=== PATIENT | male | born 1945 | race Caucasian/White ===

== ENCOUNTER 2023-12-28 23:18 | Emergency (ER) | payer MEDICARE, SELFPAY ==
[2023-12-28 23:43] VITALS: BP 125/72
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
[2023-12-29 02:11] VITALS: BP 150/57
[2023-12-29 03:00] VITALS: BP 137/60
[2023-12-29 04:00] VITALS: BP 143/60
== END 2023-12-29 04:54 ==
LOC: EMR 23:18
PROVIDERS: EMERGENCY PHYSICIAN Student in an Organized Health Care Education/Training Program; FAMILY PHYSICIAN Internal Medicine
DX: M79.604 Pain in right leg (principal); W06.XXXA Fall from bed, initial encounter; J45.909 Unspecified asthma, uncomplicated; Z87.891 Personal history of nicotine dependence; Z93.0 Tracheostomy status
CPT/HCPCS: 99284; 70450; 73590; 73700

== ENCOUNTER 2024-01-02 20:48 | Emergency (ER) | payer MEDICARE, OTHER, SELFPAY ==
[2024-01-02 20:49] VITALS: BP 137/71
[2024-01-02 21:00] VITALS: BP 155/69
--- NOTE | 2024-01-02 21:44 | ED.GENMED ---
History of Present Illness
General
Chief Complaint: Catheter/Tube Problem
Time Seen by Provider: 01/02/24 21:19
History of Present Illness
History of Present Illness:
78-year-old male presents to the emergency department from [facility] after an accidental removal of his feeding tube. Apparently the patient is not using the feeding tube, according to his daughter he has been eating all of his
meals orally for the past 4 days. They requested that the feeding to be removed at the facility but this request was denied. The primary reason for his ED evaluation today is for evaluation of bleeding given that he is on heparin. On arrival
there is no bleeding noted
Past History
Past History
ED Past Medical History: Asthma; Negative HTN, Hypercholesterolemia or NIDDM
ED Past Surgical History: Other (Hernia X 2, Multiple surgery for fractures)
Social History
Tobacco: Former smoker
Alcohol: Occasional
Personal:
Living: shelter ([facility])
Review of Systems
Review of Systems
Allergies reviewed?: Yes
All Other Systems: ROS reviewed and negative except as documented in HPI and ROS
Phy Exam
Physical Exam
Physical Exam:
GEN: Well appearing, NAD, WDWN
HEENT: Oral mucosa moist, no scleral icterus
Cardiac: Regular rate
Lung: No respiratory distress, no tachypnea
Abdomen: Left upper quadrant PEG tube site clean and dry with no active bleeding
MSK: No gross deformity or injuries
Skin: Good color, no pallor or jaundice, no rashes
Neuro: AO x3
Psych: Calm, cooperative
Course
Vital Signs
Initial and Last Documented VS:
Initial Vital Signs
Temp Pulse Resp BP Pulse Ox
98.0 F 86 20 137/71 98
01/02/24 20:49 01/02/24 20:49 01/02/24 20:49 01/02/24 20:49 01/02/24 20:49
Last Documented Vital Signs
Temp Pulse Resp BP Pulse Ox
98.0 F 86 20 139/61 95
01/02/24 20:49 01/02/24 20:49 01/02/24 20:49 01/02/24 22:00 01/02/24 22:45
MDM/Problems Addressed
MDM/Problems Addressed:
I discussed the case with both the patient's daughter as well as the nursing facility, at this time the patient and his daughter are declining to have the PEG tube replaced thus the patient will be discharged back to his facility
*Critical Care Note
Total Time (30-74mins, 75-104mins- exclusive of procedures): Not Applicable
ED Attending Note
-
Portions of this chart may have been created with voice recognition software.� Occasional wrong word or��sound alike� substitutions may have occurred due to the inherent limitations of voice recognition software.
Discharge Plan
Departure
Patient Disposition: Home (Routine Discharge)
Date of Disposition: 01/02/24
Time of Disposition: 22:05
Patient with high blood pressure during this ER visit?: No
Discharge Problem:
Complication of feeding tube
Referrals:
Patricio Arcos MD [Family Provider] -
Activity Restrictions/Additional Instructions:
Feeding tube was refused by the patient
No concerns for bleeding
Interventions
Interventions:
*Risk Screen - Suicide Last Done: 01/02/24 20:52
*General Assessment Last Done: 01/02/24 20:52
*Neglect/Abuse Screening Last Done: 01/02/24 20:52
*ED COVID-19 Vaccine History Last Done: 01/02/24 20:52
VN-Vtaiiq-Nhkqdkyxqx Assessment Last Done: 01/02/24 20:53
ED-Male Genitourinary Assessment Last Done: 01/02/24 20:53
Discharge Date and Time
Print Language: [place]
[2024-01-02 22:00] VITALS: BP 139/61
[2024-01-02 23:00] VITALS: BP 142/74
[2024-01-03] VITALS: BP 154/67
[2024-01-03 01:00] VITALS: BP 102/80
[2024-01-03 03:57] VITALS: BP 150/63
[2024-01-03 04:15] VITALS: BP 150/63
== END 2024-01-03 05:45 | disposition home or self-care (01) ==
LOC: EMR 20:48
PROVIDERS: EMERGENCY PHYSICIAN Emergency Medicine; FAMILY PHYSICIAN Internal Medicine
DX: T85.848A Pain due to other internal prosthetic devices, implants and grafts, initial encounter (principal); Y92.9 Unspecified place or not applicable; J45.909 Unspecified asthma, uncomplicated; Z46.59 Encounter for fitting and adjustment of other gastrointestinal appliance and device; Z87.891 Personal history of nicotine dependence; Z93.1 Gastrostomy status
CPT/HCPCS: 99282

== ENCOUNTER 2024-01-10 16:20 | Observation (INO) | payer MEDICARE, OTHER, SELFPAY ==
[2024-01-10] VITALS (9 sets, daily range): BP systolic 107–156; BP diastolic 51–68; BMI 31.2; BMI 30.8
[2024-01-10 12:29] LABS: Venous Blood Gas B.E. 0.5 mmol/L (-4 to +4); Venous Blood Gas HCO3 28.7 mmol/L (22-27); Venous Blood Gas O2 Sat % 66.7 %; Venous Blood Gas pCO2 61 mmHg (35-48); Venous Blood Gas pH 7.28 (7.32-7.43); Venous Blood Gas pO2 39 mmHg (30-50)
[2024-01-10 12:31] LABS: Venous Blood Gas O2 Therapy room air
[2024-01-10 12:33] LABS: % Basophils 0.7 % (0-2); % Eosinophils 1.8 % (0-6); % Immature Granulocytes 0.4 % (0-0.5); % Lymphocytes 19.5 % (20.5-51.1); % Monocytes 7.3 % (1.7-9.3); % Neutrophils 70.3 % (42.2-75.2); Absolute Eosinophils 0.1 10^3/uL (0-0.7); Absolute Lymphocytes 1.1 10^3/uL (1.2-3.4); Absolute Monocytes 0.4 10^3/uL (0.1-0.6); Hematocrit 37.4 % (39.0-52.0); Mean Corp Hgb Conc. 34.8 g/dL (33.0-37.0); Mean Corpuscular Hgb 32.7 pg (27.0-31.0); Mean Platelet Volume 8.8 fL (7.4-10.4); Nucleated Red Blood Cells % 0 % (-); Platelet Count 193 10^3/uL (130-400); Red Blood Cell Count 3.98 10^6/uL (4.70-6.10); Red Cell Dist. Width 13.8 % (11.5-14.5); White Blood Cell Count 5.6 10^3/uL (4.8-10.8)
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
[2024-01-10 12:52] LABS: COVID-19 Antigen Negative (Negative)
[2024-01-10 12:55] LABS: Blood Urea Nitrogen 23 mg/dl (9-20); Calcium 9.2 mg/dl (8.4-10.2); Carbon Dioxide 27 mmol/L (22-30); Chloride 101 mmol/L (98-107); Estimated Creatinine Clearance 64 ml/min; Glucose 117 mg/dl (70-99); Potassium 4.3 mmol/L (3.5-5.1); Sodium 140 mmol/L (135-145); eGFR > 60.00
[2024-01-10 13:00] LABS: Troponin I < 0.012 ng/ml
[2024-01-10 13:17] LABS: TSH Reflex To Free T4 4.63 uIU/ml (0.47-4.68)
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
[2024-01-10 15:04] LABS: Urine Albumin Trace (Neg - Trace); Urine Bilirubin Negative (Negative); Urine Character Clear (Clear); Urine Color Yellow; Urine Glucose Negative (Negative); Urine Ketone Negative (Negative); Urine Leukocyte Trace (Negative); Urine Nitrite Negative (Negative); Urine Occult Blood Negative (Negative); Urine Urobilinogen Negative (Neg - 1+)
[2024-01-10 15:15] LABS: Urine Squamous Cell 0-2 /LPF (Few)
[2024-01-10 15:16] LABS: Urine Bacteria Few (Negative); Urine Red Blood Cell 0-2 /HPF (0-2); Urine White Cell 0-2 /HPF (0-5)
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
[2024-01-10] MEDS: NSS 1000 IV (17:43)
--- NOTE | 2024-01-10 18:45 | PTCARENOTE ---
Received pt from ER. Pt drowsy but arousable to verbal stimuli. Oriented to x1-2,able to follow commands, Pt c/o some pain in head and right shoulder, tolerable at this time. Pt NSR on tele, VSS 98% on RA. Pt oriented to room, call varela within
reach, plan of care continues.
--- NOTE | 2024-01-10 20:13 | PTCARENOTE ---
spoke with Julio from [facility]. Pt is usually on dysphaia advanced with nectar thick liquids, placed on regular diet here. Speech consult placed to eval swallowing function, will hold off on feeding until speech eval.
[2024-01-10] MEDS: SEROQUEL 50 MG PO (21:40)
[2024-01-10] MEDS: MELATONIN 3 MG PO (21:40)
[2024-01-10] MEDS: SINGULAIR 10 MG PO (21:40)
[2024-01-10] MEDS: HEPARIN 5000 UNITS SC (21:42)
[2024-01-10] MEDS: HYTRIN 5 MG PO (21:42)
[2024-01-11] MEDS: NSS 1000 IV (03:18)
[2024-01-11 03:29] VITALS: BP 152/65
[2024-01-11 07:35] VITALS: BP 129/72
[2024-01-11 07:41] LABS: % Basophils 0.7 % (0-2); % Immature Granulocytes 0.5 % (0-0.5); % Lymphocytes 35.7 % (20.5-51.1); % Neutrophils 50.1 % (42.2-75.2); Absolute Eosinophils 0.2 10^3/uL (0-0.7); Absolute Lymphocytes 1.5 10^3/uL (1.2-3.4); Absolute Monocytes 0.4 10^3/uL (0.1-0.6); Absolute Neutrophils 2.1 10^3/uL (1.4-6.5); Mean Corp Hgb Conc. 34.4 g/dL (33.0-37.0); Mean Platelet Volume 8.6 fL (7.4-10.4); Nucleated Red Blood Cells % 0 % (-); Platelet Count 149 10^3/uL (130-400); Red Blood Cell Count 3.44 10^6/uL (4.70-6.10); Red Cell Dist. Width 13.8 % (11.5-14.5); White Blood Cell Count 4.2 10^3/uL (4.8-10.8)
[2024-01-11 08:05] LABS: Blood Urea Nitrogen 21 mg/dl (9-20); Calcium 8.6 mg/dl (8.4-10.2); Carbon Dioxide 26 mmol/L (22-30); Chloride 105 mmol/L (98-107); Estimated Creatinine Clearance 91 ml/min; Glucose 102 mg/dl (70-99); Potassium 4.3 mmol/L (3.5-5.1); Sodium 140 mmol/L (135-145); eGFR > 60.00
--- NOTE | 2024-01-11 08:34 | PTOTSP ---
Dysphagia Evaluation
Patient presents with signs concerning for at least mild oral/pharyngeal dysphagia. Signs concerning for aspiration noted with consecutive sips of mildly thick liquids via straw. Cannot rule out silent aspiration of thickened liquid bedside. No
signs of aspiration complications at this time. Patient with risk factors for dysphagia/aspiration (traumatic SDH with recent trach/PEG, GERD, asthma.)
Recommend:
1. Resume baseline diet (L6 Soft/Bite Sized, L2 Mildly Thick Liquids)
2. Medications - in puree
3. Full supervision, assist as needed
4. Small single sips/bites, slow rate, reflux precautions
5. Oral care 3x daily
6. Consider video swallow study to objectively assess swallowing function, determine if liquid/solid advancement appropriate.
--- NOTE | 2024-01-11 08:34 | W.PN.HOSP.TC ---
Today's Communication/Plan
-
Physical therapy evaluation
Orthostatic vitals.
Discharge planning
Assessment / Plan
Assessment / Plan
Impression:
Reported episode of hypotension at the nursing facility
Traumatic brain injury status post subdural hematoma October 2023.
Aphasia
Dysphagia.
�Status post PEG indefinitely removed
� Status post tracheostomy decannulated
Ambulatory dysfunction with frequent falls
Benign hypertension
Mild intermittent asthma
Former smoker
Chronic back pain
GERD
BPH
Insomnia
Obesity due to excessive calories BMI 30.
Plan:
Reported episode of transient hypotension at the nursing facility
Has been hemodynamically stable since arrival to emergency room.
Neurologic and cognitive status at the baseline.
CT scan of the head with no acute abnormalities.
No clinical suspicion for infection. Patient has been afebrile with no complaints suggestive of acute infection, chest x-ray, urinalysis all unremarkable
? If autonomic dysregulation inpatient with TBI causing postural hypotension.
Hold amlodipine and terazosin.
Physical therapy assessment
Orthostatic vitals
Dysphagia.
Recently intermittently removed PEG tube.
Aspiration risk.
Speech evaluation recommended soft diet with mildly thick liquids initiated
Continue aspiration precautions
Essential hypertension
Given reported hypotension at the nursing facility hold amlodipine and terazosin
Monitor blood pressure trend
Anticipated Discharge: Within 24 hours
Subjective/Interval History
-
Date of Service: January 11, 2024
Objective Data
-
Labs:
Laboratory Results
01/11/24
07:09
WBC 4.2 L
Hgb 11.0 L
Hct 32.0 L
Plt Count 149 D
Sodium 140
Potassium 4.3
Chloride 105
Carbon Dioxide 26
BUN 21 H
Creatinine 0.7
Glucose 102 H
Calcium 8.6
Vital Signs:
Vital Signs
Temp Pulse Resp BP Pulse Ox
97.5 F 60 16 129/72 96
01/11/24 07:35 01/11/24 08:18 01/11/24 08:18 01/11/24 07:35 01/11/24 08:18
Physical Exam
-
General: Well Developed and No Apparent Distress
HEENT: Normocephalic, Atraumatic and Moist Mucous Membranes
Respiratory: Clear to Auscultation
Cardiac: Regular Rhythm and S1/S2; Negative Murmur, Rub or Gallop
GI: Soft, Nontender, Nondistended and Normal Bowel Sounds; Negative Organomegaly
Rectal: Deferred by Provider
Musculoskeletal: No Clubbing, No Cyanosis and No Edema
Skin: Negative Rash
Neuro: Awake, Alert, Oriented, AO x 3 and Nonfocal/Grossly Intact
[2024-01-11] MEDS: HEPARIN 5000 UNITS SC (08:48)
[2024-01-11] MEDS: LIDOCAINE 4% PATCH 1 PATCH TOPICAL (08:50)
[2024-01-11] MEDS: PROTONIX 40 MG PO (08:51)
[2024-01-11] MEDS: SEROQUEL 50 MG PO (08:51)
[2024-01-11] MEDS: PROSCAR 5 MG PO (08:51)
[2024-01-11] MEDS: VITAMIN D3 (cholecalciferol) 50 MCG PO (08:52)
[2024-01-11] MEDS: THERAGRAN 1 TABLET PO (08:52)
[2024-01-11 10:16] VITALS: BP 133/62; BP 139/59; PULSE 72; PULSE 77; O2SAT 97
--- NOTE | 2024-01-11 10:17 | CM ---
Alert patient who is at [facility] from acute rehab since 12/28/23 . He had a trach and Peg tube removed but removed by pt and not replaced.He is Cypriot speaking . Spoke with Hattie at [facility] and t [place]. said he is ready to return He is non
ambulatory and uses wheelchair.Became confused recently.BENNETT letter explained to dgt she states understanding.
No VN hx / Acute rehab history
[facility]
PCP DR Arcos
PLAN return to [facility]
[2024-01-11 10:19] VITALS: BP 133/62; BP 139/59; PULSE 72; PULSE 77; O2SAT 98
[2024-01-11 10:58] VITALS: BP 132/54
--- NOTE | 2024-01-11 13:10 | W.DS.TRANS ---
DC Summary - Volleyball Commentator
-
Discharge Instructions:
Discharge Diagnosis/Procedures Transient hypotension.
TBI
Diet Other diet
Additional Diets pureed with nectar thick liquids
Instructions:
Stand-Alone Forms:
Changes to Home Medications: Yes
Discharge Medications:
DC Medications w/original date entered in [facility]
acetaminophen 325 mg tablet 650 mg PO Q6HPRN PRN mild pain/temp >100.4 01/10/24
acetaminophen 325 mg/10.15 mL oral suspension 650 mg PO Q6HPRN PRN mild pain/temp >100.4 01/10/24
amlodipine 10 mg tablet 10 mg PO DAILY 01/10/24
bisacodyl 10 mg rectal suppository 10 mg SD DAILYPRN PRN if no results from mom 01/10/24
cholecalciferol (vitamin D3) 12.5 mcg/5 mL (500 unit/5 mL) oral liquid 50 mcg PO DAILY 01/10/24
diphenhydramine HCl 25 mg tablet 25 mg PO Q6HPRN PRN puritis 01/10/24
finasteride 5 mg tablet 5 mg PO DAILY 01/10/24
heparin (porcine) 5,000 unit/mL injection solution 5,000 unit SC BID 01/10/24
ipratropium 0.5 mg-albuterol 3 mg (2.5 mg base)/3 mL nebulization soln 3 ml inhalation R [id number] PRN sob 01/10/24
lidocaine 4 % topical patch 1 patch topical DAILY back 01/10/24
magnesium hydroxide 400 mg/5 mL oral suspension (Milk of Magnesia) 30 ml PO [id number] PRN no bm 3 days 01/10/24
melatonin 3 mg tablet 3 mg PO HS 01/10/24
montelukast 10 mg tablet 10 mg PO HS 01/10/24
pantoprazole 40 mg tablet,delayed release (Protonix) 40 mg PO DAILY 01/10/24
polyethylene glycol 3350 17 gram oral powder packet (Miralax) 17 g PO DAILYPRN PRN constipation 01/10/24
quetiapine 50 mg tablet 50 mg PO BID 01/10/24
therapeutic multivitamin 1 tab PO DAILY 01/10/24
tramadol 50 mg tablet 50 mg PO Q6HPRN PRN mod-severe pain #10 tabs 01/11/24
Home Medication Changes
Terazosin stopped
Pending Results: No
[2024-01-11 14:46] VITALS: BP 129/57
== END 2024-01-11 15:51 ==
LOC: 4 EAST ACU 16:20
PROVIDERS: Clinical Nurse Specialist Family Health; Physician Assistant; ADMITTING PHYSICIAN Hospitalist; ATTENDING PHYSICIAN Internal Medicine; EMERGENCY PHYSICIAN Emergency Medicine; FAMILY PHYSICIAN Internal Medicine
DX: I95.1 Orthostatic hypotension (principal); R41.82 Altered mental status, unspecified; R53.1 Weakness; G89.29 Other chronic pain; R47.01 Aphasia; R13.10 Dysphagia, unspecified; I10 Essential (primary) hypertension; E78.5 Hyperlipidemia, unspecified; R41.89 Other symptoms and signs involving cognitive functions and awareness; J45.20 Mild intermittent asthma, uncomplicated; N40.0 Benign prostatic hyperplasia without lower urinary tract symptoms; M54.9 Dorsalgia, unspecified; K21.9 Gastro-esophageal reflux disease without esophagitis; G47.00 Insomnia, unspecified; R29.6 Repeated falls; E66.811 Obesity, class 1; E66.09 Other obesity due to excess calories; Z66 Do not resuscitate; Z87.891 Personal history of nicotine dependence; Z87.820 Personal history of traumatic brain injury; Z87.828 Personal history of other (healed) physical injury and trauma; Z68.31 Body mass index [BMI] 31.0-31.9, adult; Z11.52 Encounter for screening for COVID-19
CPT/HCPCS: 51701; 70450; 71046; 80048; 81003; 81015; 82805; 84443; 84484; 85025; 87070; 87147; 87502; 87811; 92610; 93005; 96360; 97163; 97167; 99285; G0378